=== PATIENT | female | born 1950 | race Caucasian/White ===

== ENCOUNTER 2016-07-19 06:25 | Day surgery (SDC) | payer MEDICARE ==
[~2016-07-19] VITALS: Ht 157.5 cm; Wt 97.0 kg
[~2016-07-19 06:25] MED LIST: COLCPOW6 PO; DOCU1CAP39 PO; DYAZ37.57 PO; IBUP600T26 PO; LORTA5 PO; PRAV10 PO; PRIL20CA PO
[2016-07-19] MEDS ORDERED: SODIUM CHLOR 0.9% 1000 ML INJ 1,000 ML IV SCH (07:00)
[2016-07-19] MEDS ORDERED: ASPI81CH CHEW (07:05)
[2016-07-19] MEDS ORDERED: METF500T PO (07:05)
[2016-07-19] MEDS ORDERED: METO100T PO (07:05)
[2016-07-19] MEDS ORDERED: PRAV40TA2 PO (07:05)
[2016-07-19] MEDS ORDERED: TRIA37.53 PO (07:05)
[2016-07-19] MEDS ORDERED: OMEP20TA PO (07:05)
[2016-07-19 07:11] VITALS: BP 206/116; PULSE 85; RESP 16; TEMP 97.9; O2SAT 92
[2016-07-19] MEDS ORDERED: cloNIDine HCL 0.2 MG TAB PO ONE (08:00)
[2016-07-19] MEDS ORDERED: HEPARIN SODIUM - IV 10,000 UNITS/10 ML VIAL ONE (08:15)
[2016-07-19] MEDS ORDERED: HEPARIN-NS/PF INJ 500 ML ONE (08:15)
[2016-07-19] MEDS ORDERED: MIDAZOLAM HCL 2 MG/2 ML VIAL ONE ×2 (08:34→08:58)
[2016-07-19] MEDS ORDERED: IOHEXOL 350 MG/ML 50 ML BTL (for Cath Lab) OTHER ONE (08:52)
[2016-07-19] MEDS ORDERED: LISI-515 PO (09:24)
[2016-07-19] MEDS ORDERED: ONDANSETRON HCL 4 MG/2 ML VIAL IVP PRN (09:30)
[2016-07-19] MEDS ORDERED: MISC INFORMATION XX ONE (09:30)
[2016-07-19] MEDS ORDERED: oxyCODONE/ACETAMINOPHEN 5 MG/325 MG TAB PO PRN ×2 (09:30)
[2016-07-19] MEDS ORDERED: BACITRACIN OINT 0.9 GM PKT TOP ONE (09:30)
--- NOTE | 2016-07-19 09:42 | MA ---
cc: MAILE DENTON DATE 07/19/2016 INDICATION Chest pain, abnormal stress test. PROCEDURE PERFORMED 1. Fluoroscopy with interpretation 2. Left heart catheterization 3. Coronary angiography METHOD The risks, benefits and alternatives discussed with the patient. The patient understood and consented to the procedure. PROCEDURE The patient brought into the catheterization lab, placed on the catheterization table. The right wrist was prepped and draped in a sterile fashion. The right wrist was anesthetized with 2% lidocaine. The right radial artery was cannulated and a 6-Bahraini 7 cm sheath was placed without difficulty. LEFT HEART CATHETERIZATION A 6-B[place]raini JR-5 catheter was advanced across the aortic valve without difficulty. Intraoperative hemodynamics measured 162/9 mmHg. CORONARY ANGIOGRAPHY Left coronary circulation selectively engaged with a 6-Bahraini JL-3.5 catheter. Right coronary circulation selectively engaged with a6-[place] JR-5 catheter. CORONARY ANATOMY 1. Left main coronary is short, but angiographically normal. 2. Left anterior descending coronary is a large caliber size vessel angiographically normal. Diagonal branch angiographically normal. 3. Left circumflex is a dominant vessel that gives rise to two moderate-sized obtuse marginal branches both which are angiographically normal. Left-sided posterior descending branch angiographically normal. 4. The right coronary is a small and nondominant vessel gives rise to a sinonodal branch. It has some minor luminal irregularities in the mid segment. CONCLUSIONS 1. Angiographically normal coronary arteries. 2. Normal left-sided filling pressures. PLAN HemoBand applied. The patient will be monitored closely for any post procedural complications. We will add JAIME inhibitor for hypertension. I suspect her abnormal stress test was likely secondary to subendocardial ischemia due to hypertrophy. Blood pressure control will be critical. She will follow up with Dr. Rojas in the outpatient setting. MD RANI Henning/VICENTE /9:24 AM /9:31 AM SUMMER
[2016-07-19] MEDS ORDERED: LISINOPRIL 20 MG TAB PO SCH (10:00)
== END 2016-07-19 12:30 | disposition home or self-care (01) ==
LOC: HDIC 06:25 → HCAT 06:25
PROVIDERS: ATTEND Internal Medicine
DX: R94.39 Abnormal result of other cardiovascular function study (principal); R07.9 Chest pain, unspecified; I10 Essential (primary) hypertension
CPT/HCPCS: 86850; 86900; 86901; 93454; C1769; C1893; J1644; J2250; J3010; J7030; Q9967